=== PATIENT | female | born 1965 | race Caucasian/White ===

== ENCOUNTER 2020-07-06 05:10 | Emergency (ER) | payer OTHER ==
[~2020-07-06] VITALS: Ht 157.4 cm; Wt 81.6 kg
[2020-07-06] MEDS ORDERED: ZOFRAN4 MG PO (05:45)
[2020-07-06] MEDS ORDERED: FLOMAX0.4 MG PO (05:45)
[2020-07-06 05:47] LABS: BILIRUBIN Negative (Negative); BLOOD 3+ (Negative); CLARITY Cloudy (Clear); COLOR Orange (Yellow); GLUCOSE Negative (Negative); KETONE Negative (Negative); LEUKO ESTERASE Negative (Negative); NITRITE Positive (Negative); UROBILINOGEN 0.2 E.U./dl (0.0-1.0)
[2020-07-06 06:01] LABS: BACTERIA 2+; RBC TNTC rbc/hpf (0-2)
== END 2020-07-06 06:05 | disposition home or self-care (01) ==
LOC: ED 05:10
PROVIDERS: Internal Medicine
DX: N20.9 Urinary calculus, unspecified (principal); N13.4 Hydroureter; Z87.442 Personal history of urinary calculi

== ENCOUNTER 2022-04-26 18:25 | Emergency (ER) | payer OTHER ==
[~2022-04-26] VITALS: Wt 81.6 kg
[~2022-04-26 18:25] MED LIST: FLOMAX0.4 MG PO; ZOFRAN4 MG PO
[2022-04-26 19:06] LABS: BILIRUBIN Negative (Negative); BLOOD 3+ (Negative); CLARITY Cloudy (Clear); COLOR Orange (Yellow); GLUCOSE Negative (Negative); KETONE Trace (Negative); LEUKO ESTERASE 1+ (Negative); NITRITE Negative (Negative); SPECIFIC GRAVITY >= 1.030 (1.001-1.030)
[2022-04-26 19:13] LABS: BACTERIA 1+; RBC TNTC rbc/hpf (0-2)
[2022-04-26 19:14] LABS: CALCIUM OXALATE CRYSTALS 1+; EPITHELIAL CELLS 0-2
[2022-04-26 19:45] LABS: BASO % 0.5 % (0.0-1.0); EOS # 0.2 10*3/uL (0.0-0.4); EOS % 2.8 % (1.0-4.0); HEMATOCRIT 42.2 % (37.0-47.0); LYMPH # 1.8 10*3/uL (1.3-4.4); LYMPH % 28.5 % (27.0-41.0); MEAN CELL VOLUME 88.7 fl (81.0-99.0); MEAN CORPUSCULAR HGB 29.8 pg (27.0-31.0); MEAN CORPUSCULAR HGB CONC 33.6 g/dl (33.0-37.0); MEAN PLATELET VOLUME 11.3 fl (9.6-12.3); MONO # 0.4 10*3/uL (0.1-1.0); MONO % 5.8 % (3.0-9.0); NEUT % 62.2 % (47.0-73.0); PLATELET COUNT AUTOMATED 282 10*3/uL (130-400); RED BLOOD COUNT 4.76 10*6/uL (4.10-5.10); WHITE BLOOD COUNT 6.4 10*3/uL (4.8-10.8)
[2022-04-26 20:00] LABS: ALKALINE PHOSPHATASE 72 U/L (45-117); BUN 19 mg/dl (7-24); CHLORIDE 111 mmol/L (98-107); CREATININE 1.11 mg/dL (0.55-1.02); LIPASE 161 U/L (73-393); POTASSIUM 3.9 mmol/L (3.5-5.1); SGOT/AST 20 IU/L (3-35); SGPT/ALT 33 U/L (12-78); SODIUM 143 mmol/L (136-145); TOTAL PROTEIN 7.7 gm/dL (6.4-8.2)
[2022-04-26] MEDS ORDERED: SEPTDS PO (21:25)
[2022-04-26] MEDS ORDERED: FLOMAX0.4 MG PO (21:25)
[2022-04-26] MEDS ORDERED: HYDROCODONE-AC1 EAC1 PO (21:25)
== END 2022-04-26 22:00 | disposition home or self-care (01) ==
LOC: ED 18:25
PROVIDERS: Internal Medicine; Physician Assistant
DX: N39.0 Urinary tract infection, site not specified (principal); N23 Unspecified renal colic; Z98.890 Other specified postprocedural states

== ENCOUNTER → 2022-06-07 | Outpatient (CLI) | payer OTHER ==
[~2022-06-07] MED LIST changes: +HYDROCODONE-AC1 EAC1 PO; +SEPTDS PO
[2022-06-07 11:49] LABS: BASO % 0.3 % (0.0-1.0); BILIRUBIN Negative (Negative); BLOOD Negative (Negative); CLARITY Clear (Clear); COLOR Yellow (Yellow); EOS # 0.1 10*3/uL (0.0-0.4); EOS % 1.4 % (1.0-4.0); GLUCOSE Negative (Negative); HEMATOCRIT 43.8 % (37.0-47.0); KETONE Negative (Negative); LEUKO ESTERASE Negative (Negative); LYMPH # 1.3 10*3/uL (1.3-4.4); LYMPH % 22.2 % (27.0-41.0); MEAN CELL VOLUME 90.3 fl (81.0-99.0); MEAN CORPUSCULAR HGB 30.3 pg (27.0-31.0); MEAN CORPUSCULAR HGB CONC 33.6 g/dl (33.0-37.0); MEAN PLATELET VOLUME 11.3 fl (9.6-12.3); MONO # 0.4 10*3/uL (0.1-1.0); MONO % 6.1 % (3.0-9.0); NEUT # 4.1 10*3/uL (2.3-7.9); NEUT % 69.7 % (47.0-73.0); NITRITE Negative (Negative); PH 5.5 (4.5-8.0); PLATELET COUNT AUTOMATED 251 10*3/uL (130-400); RED BLOOD COUNT 4.85 10*6/uL (4.10-5.10); RED CELL DISTRI WIDTH 13.1 % (0-14.5); SPECIFIC GRAVITY 1.025 (1.001-1.030); UROBILINOGEN 0.2 E.U./dl (0.0-1.0); WHITE BLOOD COUNT 5.9 10*3/uL (4.8-10.8)
[2022-06-07 12:12] LABS: BACTERIA 1+; MUCOUS 1+
[2022-06-07 12:15] LABS: ALKALINE PHOSPHATASE 62 U/L (46-116); BUN 10 mg/dl (9-23); CHLORIDE 107 mmol/L (98-107); CREATININE 0.87 mg/dL (0.55-1.02); POTASSIUM 4.2 mmol/L (3.4-5.1); SGPT/ALT 18 U/L (10-49); SODIUM 138 mmol/L (136-145); TOTAL PROTEIN 7.3 gm/dL (6.0-8.0)
[2022-06-07 12:17] LABS: T3 UPTAKE 25.6 % (22.4-36.7); THYROXINE (T4) TOTAL 7.2 ug/dl (4.5-10.9)
== END | disposition home or self-care (01) ==
LOC: LAB 11:10
PROVIDERS: ATTEND Urology
DX: N20.0 Calculus of kidney (principal); R31.9 Hematuria, unspecified

== ENCOUNTER → 2025-01-20 | Outpatient (CLI) | payer OTHER | END | disposition home or self-care (01) | LOC: WOUNDCARE 07:16 | PROVIDERS: ATTEND Nurse Practitioner Family | DX: S81.851A Open bite, right lower leg, initial encounter (principal); S81.831A Puncture wound without foreign body, right lower leg, initial encounter; L03.115 Cellulitis of right lower limb; I10 Essential (primary) hypertension; F17.210 Nicotine dependence, cigarettes, uncomplicated; Z98.890 Other specified postprocedural states; Z79.899 Other long term (current) drug therapy; W54.0XXA Bitten by dog, initial encounter; Y93.89 Activity, other specified; Y92.89 Other specified places as the place of occurrence of the external cause; Y99.8 Other external cause status ==

== ENCOUNTER → 2025-01-27 | Outpatient (CLI) | payer OTHER | END | disposition home or self-care (01) | LOC: WOUNDCARE 02:42 | PROVIDERS: ATTEND Nurse Practitioner Family | DX: S81.851D Open bite, right lower leg, subsequent encounter (principal); S81.831D Puncture wound without foreign body, right lower leg, subsequent encounter; R60.9 Edema, unspecified; L03.115 Cellulitis of right lower limb; I10 Essential (primary) hypertension; F17.210 Nicotine dependence, cigarettes, uncomplicated; Z98.890 Other specified postprocedural states; Z79.899 Other long term (current) drug therapy; W54.0XXD Bitten by dog, subsequent encounter; X58.XXXD Exposure to other specified factors, subsequent encounter ==

== ENCOUNTER → 2025-02-03 | Outpatient (CLI) | payer OTHER | END | disposition home or self-care (01) | LOC: WOUNDCARE 01:32 | PROVIDERS: ATTEND Nurse Practitioner Family | DX: S81.851D Open bite, right lower leg, subsequent encounter (principal); I83.212 Varicose veins of right lower extremity with both ulcer of calf and inflammation; L97.212 Non-pressure chronic ulcer of right calf with fat layer exposed; S81.831D Puncture wound without foreign body, right lower leg, subsequent encounter; I10 Essential (primary) hypertension; R60.9 Edema, unspecified; L84 Corns and callosities; L03.115 Cellulitis of right lower limb; F17.210 Nicotine dependence, cigarettes, uncomplicated; Z98.890 Other specified postprocedural states; Z79.899 Other long term (current) drug therapy; W54.0XXD Bitten by dog, subsequent encounter ==

== ENCOUNTER → 2025-02-06 | Outpatient (CLI) | payer OTHER | LOC: WOUNDCARE 00:11 | PROVIDERS: ATTEND Nurse Practitioner Primary Care | DX: S81.851D Open bite, right lower leg, subsequent encounter (principal); S81.831D Puncture wound without foreign body, right lower leg, subsequent encounter; I83.218 Varicose veins of right lower extremity with both ulcer of other part of lower extremity and inflammation; L97.212 Non-pressure chronic ulcer of right calf with fat layer exposed; L03.115 Cellulitis of right lower limb; I10 Essential (primary) hypertension; F17.210 Nicotine dependence, cigarettes, uncomplicated; Z98.890 Other specified postprocedural states; Z79.899 Other long term (current) drug therapy; W54.0XXD Bitten by dog, subsequent encounter ==

== ENCOUNTER → 2025-02-20 | Outpatient (CLI) | payer OTHER | END | disposition home or self-care (01) | LOC: WOUNDCARE 03:03 | PROVIDERS: ATTEND Nurse Practitioner Family | DX: S81.851D Open bite, right lower leg, subsequent encounter (principal); I83.218 Varicose veins of right lower extremity with both ulcer of other part of lower extremity and inflammation; L97.212 Non-pressure chronic ulcer of right calf with fat layer exposed; L03.115 Cellulitis of right lower limb; S81.831D Puncture wound without foreign body, right lower leg, subsequent encounter; I10 Essential (primary) hypertension; F17.210 Nicotine dependence, cigarettes, uncomplicated; Z98.890 Other specified postprocedural states; Z79.899 Other long term (current) drug therapy; W54.0XXD Bitten by dog, subsequent encounter; W64.XXXD Exposure to other animate mechanical forces, subsequent encounter ==

== ENCOUNTER → 2025-03-20 | Outpatient (CLI) | payer OTHER | END | disposition home or self-care (01) | LOC: WOUNDCARE 00:12 | PROVIDERS: ATTEND Nurse Practitioner Family | DX: S81.851D Open bite, right lower leg, subsequent encounter (principal); S81.831D Puncture wound without foreign body, right lower leg, subsequent encounter; I83.218 Varicose veins of right lower extremity with both ulcer of other part of lower extremity and inflammation; L97.212 Non-pressure chronic ulcer of right calf with fat layer exposed; L03.115 Cellulitis of right lower limb; F17.210 Nicotine dependence, cigarettes, uncomplicated; R60.9 Edema, unspecified; I10 Essential (primary) hypertension; Z98.890 Other specified postprocedural states; Z79.899 Other long term (current) drug therapy; W54.0XXD Bitten by dog, subsequent encounter ==

== ENCOUNTER → 2025-03-26 | Outpatient (CLI) | payer OTHER | END | disposition home or self-care (01) | LOC: WOUNDCARE 01:37 | PROVIDERS: ATTEND Nurse Practitioner Family | DX: S81.851D Open bite, right lower leg, subsequent encounter (principal); S81.831D Puncture wound without foreign body, right lower leg, subsequent encounter; I83.218 Varicose veins of right lower extremity with both ulcer of other part of lower extremity and inflammation; L97.811 Non-pressure chronic ulcer of other part of right lower leg limited to breakdown of skin; L97.212 Non-pressure chronic ulcer of right calf with fat layer exposed; L03.115 Cellulitis of right lower limb; I10 Essential (primary) hypertension; F17.210 Nicotine dependence, cigarettes, uncomplicated; Z98.890 Other specified postprocedural states; Z79.899 Other long term (current) drug therapy; W54.0XXD Bitten by dog, subsequent encounter; W64.XXXD Exposure to other animate mechanical forces, subsequent encounter ==

== ENCOUNTER 2025-06-03 21:35 | Emergency (ER) | payer OTHER ==
[2025-06-03] MEDS ORDERED: diphenhydrAMINE hydrochloride 50 MG/ML VIAL IV ONE (21:50)
[2025-06-03] MEDS ORDERED: FAMOTIDINE 20 MG in SYRINGE INFUSION 8 ML IV ONE (21:50)
== END 2025-06-03 23:45 | disposition home or self-care (01) ==
LOC: ED 21:35
DX: T78.19XA Other adverse food reactions, not elsewhere classified, initial encounter (principal); Z87.442 Personal history of urinary calculi; X58.XXXA Exposure to other specified factors, initial encounter